=== PATIENT | male | born 1955 | race Caucasian/White ===

== ENCOUNTER → 2020-08-16 14:35 | Outpatient (CLI) | payer OTHER, SELFPAY ==
[2020-08-16] MEDS: COVID-19 VACC, Ad26(JANSSEN)/PF 0.5 ML IM (14:41)
== END ==
PROVIDERS: Visit Provider Internal Medicine
DX: Z23 Encounter for immunization (principal)
CPT/HCPCS: 0031A; 91303

== ENCOUNTER → 2020-12-18 08:34 | Outpatient (CLI) | payer MEDICARE, OTHER, SELFPAY ==
[2020-12-18 11:02] LABS: COVID19 -Nasal RAPID Negative (Negative)
== END ==
PROVIDERS: Referring Provider Student in an Organized Health Care Education/Training Program; Visit Provider Student in an Organized Health Care Education/Training Program
DX: Z01.812 Encounter for preprocedural laboratory examination (principal); Z20.822 Contact with and (suspected) exposure to COVID-19
CPT/HCPCS: 87635; C9803

== ENCOUNTER 2020-12-20 11:36 | Day surgery (SDC) | payer MEDICARE, OTHER, SELFPAY ==
[2020-12-20] VITALS (8 sets, daily range): BP systolic 103–138; BP diastolic 65–81; PULSE 61–93; RESP 10–16; TEMP 36.2–37.1; O2SAT 94–98; BMI 21.4
--- NOTE | 2020-12-20 12:00 | PM.HP.1 ---
History of Present Illness History of Present Illness Date Patient Seen: 12/20/20 Chief complaint: SDC Narrative: 65 year old male comes in today for consideration of a screening colonoscopy. There have been no lower GI symptoms suggesting disease such as change in bowel habits, bleeding, abdominal pain or anemia. There's been no family history of colon cancer or colon polyps. Overall health issues have been stable, including no major cardiac events for at least 6 weeks. PCP: Dr. Jarvis Past medical history: Actinic keratosis Past surgical history: Appendectomy. Family history: Father, at 87, age related Mother, at 40, cancer Siblings: Healthy Social history: , airplane captain. Fourteen years of education. 1-2 drinks per night. Patient History Medical History (Updated 12/20/20 @ 11:54 by Merry Rivera RN) Actinic keratosis Meds Home Medications and Allergies Home Medications Medication Instructions Recorded Confirmed Type ASPIRIN (Aspirin) 81 mg PO 3XW #0 10/02/11 12/20/20 History multivitamin 1 tab PO DAILY 12/20/20 12/20/20 History Allergies Allergy/AdvReac Type Severity Reaction Status Date / Time No Known Drug Allergies Allergy Verified 12/20/20 11:52 Review of Systems Review of Systems Narrative: See HPI. Exam Narrative Exam Narrative: GENERAL: Alert and oriented, appearing stated age and in no acute distress. HEENT: Head normocephalic/atraumatic. Pupils equal, round, and reactive to light and accomodation. Extraocular muscles intact. Tympanic membranes clear. Nasal mucosa moist, septum midline. Oral mucosa moist, no lesions. Neck soft and supple, no lymphadenopathy. LUNGS: Clear to ausculation bilaterally, no wheezes, rhonchi or rales. CV: Normal S1 and S2 with regular rate and rhythm, no audible murmurs, rubs or gallops. ABDOMEN: Soft, non-tender, non-distended, no organomegaly. Positive bowel sounds. EXTREMITIES: No clubbing, cyanosis, or edema. NEURO: Cranial nerves II through XII grossly intact, no focal deficits. PSYCH: Alert and oriented x 3. SKIN: No concerning lesions. Assessment & Plan Assessment & Plan narrative: 1. Screening for colon cancer Plan for colonoscopy. The nature and character of the procedure as well as anticipated results were discussed. The possibility of not completing the procedure was also discussed. Possible complications including aspiration pneumonia, bleeding, perforation and reaction to medications either for sedation or preparation and missed lesions were discussed. Questions were answered and proceeding to the colonoscopy was elected. Informed consent signed. I sincerely appreciate the referral allowing me to participate in this patient's care. Please contact me with any questions or concerns.
--- NOTE | 2020-12-20 12:03 | PM.OP.ENDO ---
Operative Date/Time/Diagnoses Date of procedure: 12/20/20 Procedure Notes SCOAP/Timeout: 1:09 p.m. Procedure in detail: ENDOSCOPIST: Masha Hall MD Sedation RN: Daylin Mendoza RN Sedation start time: 1:11 p.m. Sedation end time: 1:52 p.m. PROCEDURE: Colonoscopy INDICATIONS: 1. Screening for colon cancer MEDICATION: Levsin 0.125 mg sublingual, incremental doses of Versed and fentanyl until appropriate level sedation achieved. ASA CLASS: 1 CECAL WITHDRAWAL TIME: 7 minutes COMPLICATIONS: None. EXTENT OF PROCEDURE: Cecum. QUALITY OF PREP: Good with portions of liquid stool. PROCEDURE: Prior to insertion of the colonoscope, a digital rectal examination was accomplished with circumferential palpation of the distal rectal mucosa without significant findings being noted. The high-definition colonoscope was passed into the rectum in the usual fashion and advanced over to the cecum without difficulty. The ileocecal valve, appendiceal stoma, and medial wall all could be inspected and no abnormalities were seen. ASCENDING COLON: As the colonoscope was withdrawn, care was taken to expose and inspect the haustral folds and a singular diverticula was noted. HEPATIC FLEXURE: Normal, no polyps, diverticula or other abnormalities. TRANSVERSE COLON: Minor diverticulosis, otherwise, normal, no polyps, or other abnormalities. DESCENDING COLON: Moderate diverticulosis, otherwise normal, no polyps, or other abnormalities. SIGMOID COLON: Moderate diverticulosis, otherwise normal, no polyps, or other abnormalities. RECTUM: Normal. J maneuver was produced. There was no significant perianal disease. The J maneuver was broken. The remainder of the rectum was inspected and there was no external hemorrhoid disease. The scope was withdrawn. IMPRESSION: 1. Normal colonoscopy 2. Diverticulosis, pancolonic, left greater than right PLAN: 1. Repeat colonoscopy in 10 years. The possibility of a missed lesion including a malignancy has been discussed with the patient previously. Potential alarm symptoms have been discussed and should be reported immediately.
[2020-12-20] MEDS: LACTATED RINGERS 1,000 ML 200 ML IV (12:10)
[2020-12-20] MEDS: HYOSCYAMINE 0.125 MG TABLET PO ×2 (12:12→12:13)
[2020-12-20] MEDS: fentaNYL 250 MCG/5 ML INJ IV (13:11)
[2020-12-20] MEDS: MIDAZOLAM 5 MG/5 ML VIAL IV (13:11)
--- NOTE | 2020-12-20 13:48 | SUR.OPER ---
Addendum entered by Yaritza Suh R.N. 12/20/20 14:38: Angelica Zhou assessed patients Right Forearm PIV infiltration around 1320 also. At 1435, per Daylin Guillermo RN, patient's right forearm appeared to have slightly improved, less swollen. Patient had reported no symptoms upon entry to ENDO, after medication administration, RN above had noted the infiltration and then patient reported slight pain. Original Note: PIV to right forearm infiltrated, PIV removed from left forearm. Warm compress and arm elevation provided. New PIV placed to Left AC. BP cuff placed to right ankle, unable to get a reading after first BP taken on the ankle. Hypotension occurred, see Progress note vital sign record. BP cuff changed to left upper arm. Blood pressure reading stable. IVF increased. Patient remained stable.
--- NOTE | 2020-12-20 15:22 | SUR.PHASEII ---
Late entry: pt wanting to go home, ride called, belly soft, tolerating liquids. Pt left in stable condition.
== END 2020-12-20 15:00 | disposition home or self-care (01) ==
PROVIDERS: Referring Provider Student in an Organized Health Care Education/Training Program; Visit Provider Student in an Organized Health Care Education/Training Program
PROC: 0DJD8ZZ Inspection of Lower Intestinal Tract, Via Natural or Artificial Opening Endoscopic (ICD-10-PCS; CPT 45378; principal; 2020-12-20 13:00)
DX: Z12.11 Encounter for screening for malignant neoplasm of colon (principal); K57.30 Diverticulosis of large intestine without perforation or abscess without bleeding
CPT/HCPCS: G0121; J2250; J3010

== ENCOUNTER → 2022-06-08 17:06 | Outpatient (CLI) | payer MEDICARE, OTHER, SELFPAY ==
--- NOTE | 2022-06-08 17:08 | DI.US.S_ITS ---
PROCEDURE: US ABD AORTA ANEURYSM SCREEN INDICATIONS: PERSONAL HISTORY OF NICOTINE DEPENDENCY TECHNIQUE: Real time scanning was performed of the aorta and iliac arteries, with image documentation. COMPARISON: None. FINDINGS: Aorta: Proximal aortic diameter measures 1.7 cm. Mid-aorta measures 0.6 cm. Distal aortic diameter is 1.4 cm. Iliac arteries: Right common iliac artery measures 1 cm. Left common iliac artery measures 1.1 cm. IMPRESSION: Negative for aneurysm. Dictated by: Glen Bruce M.D. on 06/08/2022 at 18:24 Approved by: Glen Bruce M.D. on 06/08/2022 at 18:24
== END ==
PROVIDERS: PCP Family Medicine; Referring Provider Family Medicine; Visit Provider Family Medicine
DX: Z87.891 Personal history of nicotine dependence (principal)
CPT/HCPCS: 76706

== ENCOUNTER → 2022-07-07 13:15 | Outpatient (CLI) | payer MEDICARE, OTHER, SELFPAY ==
--- NOTE | 2022-07-07 | DI.RAD.S_ITS ---
PROCEDURE: FL BARIUM SWALLOW W SPEECH INDICATIONS: Dysphagia COMPARISON: None. TECHNIQUE: Examination was conducted in conjunction with speech pathology per standard protocol. In the lateral projection, filming was performed of the patient swallowing. AP projection filming may also be performed with patient swallowing. COMPARISON: FINDINGS: Function: The oral preparatory phase appears normal, with proper containment. The subsequent oral propulsive phase, pharyngeal phase, and esophageal phase of swallowing also appear normal with all proffered substances. No laryngotracheal penetration or aspiration. No pathologic vallecular pooling. Morphology: No cricopharyngeal bar is identified. No cervical esophageal webs. No Zenker's diverticulum. No strictures. Prominent osteophytes within the mid and lower cervical spine protrude anteriorly and cause posterior indentations on the posterior cervical esophagus with mild narrowing. IMPRESSION: 1. No evidence of laryngeal penetration or aspiration. 2. 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 Dictated by: Ailyn Martinez M.D. on 07/07/2022 at 16:24 Transcribed by: KIRIT on 07/07/2022 at 16:25 Approved by: Ailyn Martinez M.D. on 07/07/2022 at 16:53
--- NOTE | 2022-07-07 17:27 | ST.SWALLOW ---
Visit Care Team Role Provider Type Aiden Jarvis MD Attending Provider Physician Primary Care Provider Referring Provider Specialty: Family Practice Address: [facility] [place], [address] Email: [email or web address] Modified Barium Swallow Study PHLEBOTOMY PROGRAM COORDINATOR Modified Barium Swallow Study Start: 07/07/22 16:39 Freq: Status: Active Protocol: Document 07/07/22 16:42 LNK (Rec: 07/07/22 17:27 LNK [id number]) Modified Barium Swallow Study Total Time Visit Start Time 13:30 Visit Stop Time 14:00 Total Visit Minutes [address] Jarvis Reason for Referral dysphagia Setting Setting Outpatient Care Patient Information Identification Type Name,Date of Patient History Pt was seen for a Modified Barium Swallow Study due to difficulty with swallowing dry foods such as tuna fish, breads, crackers, etc. he does have trouble when swallowing a zinc pill as well. He does not report difficulty with liquids. According to the pt, he describes himself as a ' lifelong fast eater and that he does not drink liquids during meals. He noted that he has had difficulty breathing when foods get stuck. He denied needing Heimlich maneuver. He stated he walks around in order to ease sensation of globus in his sternal area. Pt denies injury /surgery in the neck area and any neurological evaluations related to swallowing difficulty. Additionally, he denies cough/choke or emisis of non-digested foods. Subjective Observations Pt was seated in the fluoroscopy chair with directions and procedures described for him. He indicated he understood and agreed to proceed. Patient Positioning Position View Lat-A/P Imaging Lateral View Textures Administered Trials Presented Thin Liquid via Spoon,Thin Liquid via Cup,Pudding Thick Liquid via Spoon,Regular Textures,Barium Tablet Oral Phase Source: MBSIMP (TM) (C) Bolus Specific Scoring Grid Lip Closure No Impairment (WNL) Tongue Control During Bolus Hold No Impairment (WNL) Bolus Prep/Mastication No Impairment (WNL) Bolus Transport/Lingual Motion No Impairment (WNL) A/P Lingual Propulsion Delay No Oral Residue No Impairment (WNL) Nasal Regurgitation No Additional Oral Phase Observations OME and DKS were observed to be WNL. Oral phase of swallowing indicated good mastication with rotary chew. Good bolus preparation, control and A/P transition. Oral phase of swallow was observed to be WNL. Pharyngeal Phase Source: MBSIMP (TM) (C) Bolus Specific Scoring Grid Delayed Initiation of Pharyngeal Swallow No Soft Palate Elevation No Impairment (WNL) Tongue Base Strength/Range of Motion Mild Impairment Residue Along the Tongue Base No Clearance of Residue Along Tongue Base No Impairment (WNL) Laryngeal Elevation Minimal Impairment Anterior Hyoid Movement Minimal Impairment Epiglottic Range of Motion No Impairment (WNL) Vallecular Residue No Laryngeal Vestibular Closure No Impairment (WNL) Pharyngeal Stripping Wave No Impairment (WNL) Posterior Pharyngeal Wall Residue No Upper Esophageal Sphincter Opening No Impairment (WNL) Residue in the Pyriform Sinuses No Esophageal Clearance Upright Position No Impairment (WNL) Pharyngoesophageal Backflow Observed No Additional Pharyngeal Phase Observations Mild tongue base weakness was observed with minimal impact on the hyolayryngeal elevation and movement, and no impact on the epiglottic inversion and seal of the laryngeal vestibule. No pharyngeal pooling eas observed throughout all trials. Pharyngeal phase of swallowing was observed to be WFL. A/P View Textures Administered Trials Presented Thin Liquid via Spoon,Barium Tablet A/P View Observations Pharyngeal Contraction No Impairment (WNL) Esophageal Function No Impairment (WNL) Esophageal Clearance Upright Position No Impairment (WNL) Esophageal Observations Esophageal Function The pt c/o a sense of globus near the sternum that he reported eased after time and walking around. He noted that he is a fast eater and that he does not drink liquids during meals. observation of the bolus after passing through the UES, it was noted that there appeared to be large osteophytes ( C5-C6, L1) that distort the posterior wall of the esophagus and impact bolus flow. Collected residue was observed between the osteophytes of C5-C6 across all trials. As the trial pieces were small in size (regular texture and pudding thick liquid0), a small amount of residue remained. For the pt, it is likely that, as he described, he eats quickly and without liquids during meals, the solid residue builds in the esophagus near C5-C6 with continued consumption of food. This would lead to solids getting stuck, requiring time to pass through the esophagus to the stomach. It was recommended to the pt that he increase drinking liquids during meals (alternating liquids and solids) to aid the boli in flowing to the stomach without becoming stuck . pt noted that he understood and agreed to increase liquids during meals and slow down his consumption. Pt was als encouraged to contact his physician if there is no relief with increasing liquids , which may indicate a referral to GI. Clinical Impressions Dysphagia Type Normal swallow Patient Appropriate for Therapy No Recommendations Diet Liquids Order Thin Diet Order Regular Medication Recommendation As Tolerated Aspiration Precautions Recommended Precautions Alternate Liquids/Solids, Frequent Rest Periods
== END ==
PROVIDERS: PCP Family Medicine; Referring Provider Family Medicine; Visit Provider Family Medicine
DX: R13.10 Dysphagia, unspecified (principal); K22.2 Esophageal obstruction; M25.78 Osteophyte, vertebrae; Z87.891 Personal history of nicotine dependence
CPT/HCPCS: 74230; 92611

== ENCOUNTER → 2024-03-14 07:16 | Outpatient (CLI) | payer MEDICARE, OTHER, SELFPAY ==
[2024-03-16 07:11] LABS: PSA Free % 25.2 % (.); PSA, Total 5.6 ng/mL (0.0-4.0)
== END ==
PROVIDERS: PCP Family Medicine; Referring Provider Urology; Visit Provider Urology
DX: R97.20 Elevated prostate specific antigen [PSA] (principal); N40.1 Benign prostatic hyperplasia with lower urinary tract symptoms; N13.8 Other obstructive and reflux uropathy
CPT/HCPCS: 36415; 84153; 84154

== ENCOUNTER → 2024-06-29 08:06 | Outpatient (CLI) | payer MEDICARE, OTHER, SELFPAY ==
[2024-07-01 07:10] LABS: PSA Free % 24.6 % (.); PSA, Total 5.4 ng/mL (0.0-4.0)
== END ==
PROVIDERS: PCP Family Medicine; Referring Provider Urology; Visit Provider Urology
DX: R97.20 Elevated prostate specific antigen [PSA] (principal)
CPT/HCPCS: 36415; 84153; 84154